=== PATIENT | male | born 2000 | race Caucasian/White ===

== ENCOUNTER 2020-04-12 05:19 | Emergency (ER) | payer SELFPAY ==
[~2020-04-12] VITALS: Ht 185.4 cm; Wt 138.3 kg
[2020-04-12 05:35] VITALS: BP_SYST 155
--- NOTE | 2020-04-12 05:42 | NUR ---
Patient to ER bed 2 to gown for evaluation. Side rails up.
--- NOTE | 2020-04-12 05:43 | NUR ---
Patient came from home for evaluation of right ear pressure since yesterday. No other complaints at this time.
--- NOTE | 2020-04-12 06:05 | NUR ---
ER Dr. Kim at bedside examining patient.
[2020-04-12] MEDS: AMOXICILLIN 500 MG CAPSULE PO ONE (06:13)
[2020-04-12 06:26] VITALS: BP_SYST 133
--- NOTE | 2020-04-12 06:26 | NUR ---
Patient given written and verbal discharge instructions and verbalizes understanding. ER MD discussed with patient the results and treatment provided. Patient in stable condition. ID arm band removed. Rx of AMOXICILLIN AND CORTISPORIN EAR DROPS given. Patient educated on pain management and to follow up with PMD. Pain Scale 2/10. Opportunity for questions provided and answered. Medication side effect fact sheet provided.
== END 2020-04-12 06:26 | disposition home or self-care (01) ==
LOC: SED 05:19
DX: H92.01 Otalgia, right ear (principal)
CPT/HCPCS: 99283